=== PATIENT | female | born 2000 | race Caucasian/White ===

== ENCOUNTER 2020-12-08 21:18 | Emergency (ER) | payer BC ==
[~2020-12-08] VITALS: Ht 175.3 cm; Wt 111.4 kg
[2020-12-08 21:29] VITALS: TEMP 98.4
[2020-12-08 22:12] LABS: BASO % 0.4 % (0.0-2.0); EOS # 0.1 (0.0-0.7); EOS % 1.4 % (0-4.0); GRAN % 58.4 % (42.2-75.2); HEMATOCRIT 38.7 % (37.0-47.0); HEMOGLOBIN 12.9 g/dl (12.5-16.0); LYMPH # 2.7 (1.2-3.4); LYMPH % 32.1 % (20.0-51.0); MEAN CELL VOLUME 95 fl (80.0-100.0); MEAN CORPUSCULAR HEMOGLOBIN 32 pg (27.0-31.0); MEAN CORPUSCULAR HGB CONC 33 g/dl (33.0-37.0); MEAN PLATELET VOLUME 9.7 fl (7.4-10.4); MONO # 0.6 (0.1-0.6); MONO % 7.5 % (1.7-9.3); PLATELET COUNT 275 K/mm3 (130-400); RED BLOOD COUNT 4.08 M/mm3 (4.10-5.30); REDCELL DISTRIBUTION WIDTH-CV 12.2 % (11.5-14.5)
[2020-12-08 22:24] LABS: CALCIUM 9.5 mg/dL (8.4-10.2); CREATININE, serum 0.92 (0.52-1.25); POTASSIUM 3.4 mmol/L (3.4-5.0)
[2020-12-08] MEDS ORDERED: BENADRYL25 M2 PO (23:58)
[2020-12-08] MEDS ORDERED: EPIPEN 2-PAK1 MG/ML IM (23:58)
[2020-12-09 00:11] VITALS: BP 131/88; PULSE 86
== END 2020-12-09 00:12 | disposition home or self-care (01) ==
LOC: COL.ER 21:18
PROVIDERS: Emergency Medicine
DX: T78.40XA Allergy, unspecified, initial encounter (principal); Z91.013 Allergy to seafood
CPT/HCPCS: J0171; J1100

== ENCOUNTER 2021-07-03 18:46 | Emergency (ER) | payer BC ==
[~2021-07-03] VITALS: Ht 177.8 cm; Wt 122.7 kg
[~2021-07-03 18:46] MED LIST: BENADRYL25 M2 PO; EPIPEN 2-PAK1 MG/ML IM
[2021-07-03 18:54] VITALS: TEMP 98
[2021-07-03 20:25] VITALS: BP 120/71; PULSE 80
== END 2021-07-03 20:30 | disposition home or self-care (01) ==
LOC: COL.ER 18:46
DX: T78.1XXA Other adverse food reactions, not elsewhere classified, initial encounter (principal); Z91.013 Allergy to seafood
CPT/HCPCS: J0171; J1200; J2930